=== PATIENT | male | born 1985 | race Caucasian/White ===

== ENCOUNTER 2019-05-10 13:39 | Emergency (ER) | payer BC ==
[2019-05-10] MEDS ORDERED: IPRATROPIUM BROM 0.5MG/2.5ML ONE (14:17)
[2019-05-10] MEDS ORDERED: ALBUTEROL 2.5 MG/3 ML NEB SOL ONE (14:17)
--- NOTE | 2019-05-10 15:45 | ER ---
Nurse's Notes [facility] Name: Romaine Matute Age: 33 yrs Sex: Male : 1985 Arrival Date: 05/10/2019 Time: 13:44 Bed 27 Private MD: Diagnosis: Acute bronchitis Presentation: 05/10 14:12 Presenting complaint:. Transition of care: patient was not received from another setting of care. Onset of symptoms was April 25, 2019. Risk Assessment: Do you want to hurt yourself or someone else? Patient reports no desire to harm self or others. Initial Sepsis Screen: Does the patient meet any 2 criteria? No. Patient's initial sepsis screen is negative. Does the patient have a suspected source of infection? No. Patient's initial sepsis screen is negative. Note on productive cough X 2 weeks, no fever, feels congestion in his chest. Care prior to arrival: None. 14:12 Method Of Arrival: Ambulatory iw 14:12 Acuity: SUNNI 4 iw Historical: - Allergies: 14:13 No Known Allergies; iw - Home Meds: 14:13 None [Active]; iw - PMHx: 14:13 None; iw - PSHx: 14:13 None; iw - Immunization history:: Adult Immunizations not up to date. - Social history:: Smoking status: Patient/guardian denies using tobacco. - Ebola Screening: : Patient negative for fever greater than or equal to 101.5 degrees Fahrenheit, and additional compatible Ebola Virus Disease symptoms Patient denies exposure to infectious person Patient denies travel to an Ebola-affected area in the 21 days before illness onset No symptoms or risks identified at this time. Screenin:26 Abuse screen: Denies threats or abuse. Denies injuries from another. Nutritional rv screening: No deficits noted. Tuberculosis screening: No symptoms or risk factors identified. Fall Risk None identified. Assessment: 14:25 General: Appears in no apparent distress. comfortable, Behavior is calm, cooperative. rv Pain: Denies pain. Neuro: Level of Consciousness is awake, alert, obeys commands, Oriented to person, place, time, situation. Cardiovascular: Patient's skin is warm and dry. Respiratory: Airway is patent. GI: No signs and/or symptoms were reported involving the gastrointestinal system. : No signs and/or symptoms were reported regarding the genitourinary system. EENT: No signs and/or symptoms were reported regarding the EENT system. Derm: Skin is intact. Musculoskeletal: No signs and/or symptoms reported regarding the musculoskeletal system. 15:28 Reassessment: denies any change to prior condition. no wheezing upon auscultation. rv awaiting XRAY result. 15:58 Reassessment: Cesario Jeffery talked to the patient and explained the results and the plan rv of care. patient agreed. Vital Signs: 14:13 BP 158 / 89; Pulse 81; Resp 18 S; Temp 98.5(O); Pulse Ox 98% on R/A; Weight 176.9 kg; iw Height 5 ft. 10 in. (177.80 cm); Pain 0/10; 15:29 BP 139 / 94; Pulse 85; Resp 18; Pulse Ox 98% on R/A; rv 14:13 Body Mass Index 55.96 (176.90 kg, 177.80 cm) iw ED Course: 13:44 Patient arrived in ED. mr 14:04 Cesario Jeffery PA is PHCP. cp 14:04 Yakov Garcia MD is Attending Physician. cp 14:13 Triage completed. iw 14:13 Arm band placed on. iw 14:15 Matias Jane, ERNESTINA is Primary Nurse. rv 14:26 Patient has correct armband on for positive identification. Bed in low position. Call rv light in reach. Side rails up X 1. Pulse ox on. NIBP on. 14:57 XRAY Chest Pa And Lat (2 Views) Sent. rv 15:17 XRAY Chest Pa And Lat (2 Views) In Process Unspecified. EDMS 15:58 No provider procedures requiring assistance completed. Patient did not have IV access rv during this emergency room visit. Administered Medications: 14:20 Drug: Albuterol 2.5 mg Route: Inhalation; rv 15:27 Follow up: Response: Wheezing diminished rv 14:20 Drug: AtroVENT Aerosol 0.5 mg Route: Inhalation; rv 15:27 Follow up: Response: Wheezing diminished rv Outcome: 15:44 Discharge ordered by . cp 15:58 Discharged to home ambulatory. rv 15:58 Condition: good 15:58 Discharge instructions given to patient, Instructed on discharge instructions, follow up and referral plans. medication usage, Demonstrated understanding of instructions, follow-up care, medications, Prescriptions given X 2. 15:59 Patient left the ED. rv Signatures: Dispatcher [employer] EDUT FlanneryBrandy villalta Irene, RN RN Cesario Lea PA PA cp Vicente, Ronaldo, ERNESTINA RN rv
--- NOTE | 2019-05-10 15:45 | EDPHYS ---
Physician Documentation [facility] Name: Romaine Matute Age: 33 yrs Sex: Male : 1985 Arrival Date: 05/10/2019 Time: 13:44 Bed 27 Private MD: ED Physician Yakov Garcia HPI: 05/10 14:20 This 33 yrs old Male presents to ER via Ambulatory with complaints of Cough. cp 14:20 The patient or guardian reports cough, that is intermittent, with productive sputum. cp 14:20 Onset: The symptoms/episode began/occurred 2 week(s) ago. Severity of symptoms: in the emergency department the symptoms are unchanged, despite home interventions. Associated signs and symptoms: Pertinent negatives: chest pain, diarrhea, fever, vomiting. Historical: - Allergies: 14:13 No Known Allergies; iw - Home Meds: 14:13 None [Active]; iw - PMHx: 14:13 None; iw - PSHx: 14:13 None; iw - Immunization history:: Adult Immunizations not up to date. - Social history:: Smoking status: Patient/guardian denies using tobacco. - Ebola Screening: : Patient negative for fever greater than or equal to 101.5 degrees Fahrenheit, and additional compatible Ebola Virus Disease symptoms Patient denies exposure to infectious person Patient denies travel to an Ebola-affected area in the 21 days before illness onset No symptoms or risks identified at this time. ROS: 14:30 Constitutional: Negative for body aches, chills, fever, poor PO intake. cp 14:30 Eyes: Negative for injury, pain, redness, and discharge. cp 14:30 ENT: Negative for drainage from ear(s), ear pain, sinus congestion, difficulty swallowing, difficulty handling secretions. 14:30 Cardiovascular: Negative for chest pain. 14:30 Respiratory: Positive for cough, wheezing, Negative for shortness of breath. 14:30 Abdomen/GI: Negative for abdominal pain, nausea, vomiting, and diarrhea. 14:30 Skin: Negative for rash. 14:30 Neuro: Negative for altered mental status, headache, weakness. 14:30 All other systems are negative. Exam: 14:35 Constitutional: The patient appears in no acute distress, alert, awake, cp non-diaphoretic, non-toxic, well developed, well nourished, obese. 14:35 Head/Face: Normocephalic, atraumatic. cp 14:35 Eyes: Periorbital structures: appear normal, Conjunctiva: normal, no exudate, no injection, Sclera: no appreciated abnormality, Lids and lashes: appear normal, bilaterally. 14:35 ENT: External ear(s): are unremarkable, Ear canal(s): are normal, clear, TM's: bulging, is not appreciated, bilaterally, dullness, bilaterally, erythema, is not appreciated, bilaterally, Nose: is normal, Mouth: is normal, Posterior pharynx: is normal, airway is patent, no erythema, no exudate. 14:35 Neck: ROM/movement: is normal, is supple, without pain, no range of motions limitations, no nuchal rigidity. 14:35 Chest/axilla: Inspection: normal, Palpation: is normal, no crepitus, no tenderness. 14:35 Cardiovascular: Rate: normal, Rhythm: regular. 14:35 Respiratory: the patient does not display signs of respiratory distress, Respirations: normal, no use of accessory muscles, no retractions, no splinting, no tachypnea, labored breathing, is not present, Breath sounds: decreased breath sounds, are not appreciated, stridor, is not appreciated, + upper airway congestion. wheezing: that is mild, is heard diffusely. 14:35 Abdomen/GI: Exam negative for discomfort, distension, guarding, Inspection: obese 14:35 Back: pain, is absent, ROM is normal. 14:35 Skin: no rash present. Vital Signs: 14:13 BP 158 / 89; Pulse 81; Resp 18 S; Temp 98.5(O); Pulse Ox 98% on R/A; Weight 176.9 kg; iw Height 5 ft. 10 in. (177.80 cm); Pain 0/10; 15:29 BP 139 / 94; Pulse 85; Resp 18; Pulse Ox 98% on R/A; rv 14:13 Body Mass Index 55.96 (176.90 kg, 177.80 cm) iw MDM: 14:06 Patient medically screened. cp 15:43 Data reviewed: vital signs, nurses notes, radiologic studies, plain films. cp 15:43 Test interpretation: by ED physician or midlevel provider: plain radiologic studies, cp chest xray negative for focal pneumonia. Counseling: I had a detailed discussion with the patient and/or guardian regarding: the historical points, exam findings, and any diagnostic results supporting the discharge/admit diagnosis, radiology results, to return to the emergency department if symptoms worsen or persist or if there are any questions or concerns that arise at home. Response to treatment: the patient's symptoms have markedly improved after treatment. ED course: VSS. Due to length of symptoms for past 2 weeks and production of sputum, will treat with oral antibiotic and discharge to home for continued monitoring. 05/10 14:13 Order name: XRAY Chest Pa And Lat (2 Views) cp Administered Medications: 14:20 Drug: Albuterol 2.5 mg Route: Inhalation; rv 15:27 Follow up: Response: Wheezing diminished rv 14:20 Drug: AtroVENT Aerosol 0.5 mg Route: Inhalation; rv 15:27 Follow up: Response: Wheezing diminished rv Disposition: 05/10/19 15:44 Discharged to Home. Impression: Acute bronchitis. - Condition is Stable. - Discharge Instructions: Acute Bronchitis, Adult. - Prescriptions for Tessalon Perles 100 mg Oral Capsule - take 2 capsule by ORAL route every 8 hours As needed; 30 capsule. Zithromax Z- Hong 250 mg Oral Tablet - take 1 tablet by ORAL route as directed for 5 days Day 1 - take two (2) tablets one time. Day 2, 3, 4 , 5 take one (1) tablet once daily.; 6 tablet. Albuterol Sulfate 90 mcg/actuation - inhale 1-2 puff by INHALATION route every 4-6 hours; 1 Inhaler. - Medication Reconciliation Form, Thank You Letter, Antibiotic Education, Prescription Opioid Use, Work release form form. - Follow up: Private Physician; When: 1 week; Reason: Worsening of condition. - Problem is new. - Symptoms have improved. Addendum: 05/12/2019 07:54 Co-signature as Attending Physician, Yakov Garcia MD I agree with the assessment and k dr plan of care. Signatures: Dispatcher [employer] EDYakov Hutton MD MD kdr Maria Victoria Charles RN RN iw Page, Corey, PA PA cp Matias Jane RN RN rv Corrections: (The following items were deleted from the chart) 05/10 15:59 15:44 05/10/2019 15:44 Discharged to Home. Impression: Acute bronchitis. Condition is rv Stable. Forms are Medication Reconciliation Form, Thank You Letter, Antibiotic Education, Prescription Opioid Use. Follow up: Private Physician; When: 1 week; Reason: Worsening of condition. Problem is new. Symptoms have improved. cp
--- NOTE | 2019-05-10 15:59 | RAD REPORT ---
EXAM DESCRIPTION: RAD - Chest Pa And Lat (2 Views) - 05/10/2019 3:09 pm CLINICAL HISTORY: COUGH COMPARISON: None. TECHNIQUE: PA and lateral views of the chest were obtained. FINDINGS: The lungs are underinflated. Lung low are clear. No failure or volume overload. Lateral view has significant motion degradation. Heart size is normal and central vasculature is within no rmal limits. No pleural effusion or pneumothorax seen. No acute bony finding noted. No aortic abno rmality. IMPRESSION: No acute cardiopulmonary process.
[2019-05-10 16:25] VITALS: TEMP 98.5; O2SAT 98
[2019-05-10 16:27] VITALS: BP 139/94
== END 2019-05-10 15:59 | disposition home or self-care (01) ==
LOC: ER 13:39
DX: J20.9 Acute bronchitis, unspecified (principal)
CPT/HCPCS: 71046; 99284

== ENCOUNTER 2020-01-06 08:33 | Emergency (ER) | payer BC ==
--- OUTSIDE RECORDS SUMMARY | 2020-01-06 08:35 | XMS REPORT | Continuity of Care Document ---
:1985 Author Organization [facility] Address [address] [place] [address] Phone Unavailable Care Team Providers Name Role Phone PHYSICIAN Primary Care Physician Unavailable Insurance Providers Guarantor Kelvin Benitez Address [address] [place] [address] Email [email or web address] Payer [employer] Policy Number [id number] Subscriber's Name Kelvin Benitez Relationship Self / Same As Patient Group Number [id number] Group Name NA Advance Directives Directive Response Recorded Date/Time Advance Directive on File No 11/19/18 2:55p m Patient/Family Given Education Material R/T Y - 11/19/18.. .SBM 11/19/18 3:31pm Directives? Chief Complaint and Reason for Visit Chief Complaint HEENTL Reason for Visit Elevated blood pressure read ing Fluid level behind tympanic membrane of both ears Otitis media Problems Active ProblemsNo active problem information available. Past Problems Medical Problem Onset Date Status Elevated blood pressure reading Unknown Acute Fluid level behind tympanic membrane of both ears Unknown Acute Otitis media Unknown Acute Otitis media Unknown Acute Medications Current Home Medications Medication Dose Units Route Directions Days Qty Instructio ns Start Date Amoxicillin/Cl 1 Tab ORAL Twice A Day 10 Days 20 Tablet 11/19/18 avulanate for Otitis Potassium Media (Augmentin *) 875 Mg Tab Loratadine 1 Cap ORAL Daily for 30 Days 30 Cap (Claritin 10 Allergy Mg) 10 Mg Cap Symptoms Social History Social History Problem Response Recorded Date/Time Onset Date Status Hx Physical Abuse No 11/19/2018 2:55pm Not Applicable Not Applicable Smoking Status Start Date Stop Date Never smoker Hospital Discharge Instructions No hospital discharge instruction information available. Plan of Care Discharge Date 11/19/18 3:28pm Instructions/Education Provided Otitis Media, Adult, E asy-to-Read Hypertension, [id number] Forms Provided Portal Welcome Letter Prescriptions See Medication Section Referrals NO PHYSICIAN Additional Instructions/Education DIAGNOSIS: OTITIS ME SUSANA, FLUID LEVEL BEHIND TYMPANIC MEMBRANE, ELEVATED BLOOD PRESSURE PRESCRIPTION: AUGMENTIN , LO RATADINE FOLLOW UP: WITH PRIMARY CARE PROVIDER OR ENT IN 2 DAYS * RETURN TO EMERGENCY DEPART MENT FOR ANY CHANGE IN CONDITION OR WORSENING* INSTRUCTIONS: DRINK PLENTY OF FLUIDS MAY TAKE TYLENOL OR IBUPROFE N PER BOTTLE DIRECTIONS Care Plan and Goals TAKE MEDICATIONS PRESCRIB ED FOLLOW UP WITH PCP RETURN TO ER WITH ANY FURTHE R EMERGENT CONDITIONS Functional Status No functional status information available. Allergies, Adverse Reactions, Alerts No known allergies. Immunizations No immunization information available. Vital Signs Acute Vital Signs Vital Response Date/Time Blood Pressure 185/107 mm Hg 11/19/2018 3:26pm Pulse Pulse Rate (adult) 95 beats per minute (60 - 100) 019 3:26pm Respiratory Rate 20 breaths per minute (10 - 24) 11/20/19 19 3:26pm Results No relevant diagnostic test, laboratory data and/or discharge summary information available. Procedures No procedure information available. Encounters Encounter Location Arrival/Admit Date Discharge/Depart Date Attending Provider Departed David 11/19/18 2:40pm 11/19/18 3:28pm RAMON HARDY Emergency Room [facility] Recent Diagnosis
--- OUTSIDE RECORDS SUMMARY | 2020-01-06 08:36 | XMS REPORT | Continuity of Care Document ---
:1985 Author Organization [facility] Address [address] [place] [address] Care Team Providers Name Role Phone Juliane PATRICK Primary Care Physician Allergies, Adverse Reactions, Alerts No known allergies. Medications Medication Status Dose Units Route Sig Qty Days Start End Instruct ions Date Date Amoxicillin/ Active 1 ORAL Twice A October Clavulanate Day for , Otitis 2019 Media 3:17pm Loratadine Active 1 ORAL Daily for October Allergy , Symptoms 2019 3:17pm Problems Active Problems Medical Problem Onset Date Status Dehydration Active Hypokalemia Active Inactive/Resolved Problems Medical Problem Onset Date Status Otitis media Resolved Elevated blood pressure reading Resolved Fluid level behind tympanic Resolved membrane of both ears Otitis media Resolved Procedures Procedure Date Performed Status Computed tomography angiography December 06, 2019 complete d of chest for pulmonary embolism Computed tomography of abdomen December 06, 2019 completed and pelvis with contrast Relevant Diagnostic Tests and/or Laboratory Data Laboratory Results Test Date/Time Result Interpretation Reference Result Comment Performing Range Site White Blood Count November 10.7 4.0-12.3 MR , 104 2019 [facility] [address] 3:35pm Red Blood Count November 5.70 3.80-5.80 [facility] , 104 2019 [facility] [address] 3:35pm Hemoglobin November 16.0 11.7-17.2 [facility], 104 2019 [place] [id number] 3:35pm Hematocrit November 48.3 35.0-51.0 [facility], 104 2019 [place] [address] 3:35pm Mean Corpuscular Janice 84.7 83-100 [facility], 104 [facility] Volume 2019 [place] [address] 3:35pm Mean Corpuscular Janice 28.1 26.8-33.4 [facility], 104 [facility] Hemoglobin 2019 [place] [id number] 3:35pm Mean Corpuscular Janice 33.1 30-35 [facility], 104 [facility] Hemoglobin 2019 [place] [address] Concent 3:35pm Red Cell Janice 12.9 12.0-14.0 [facility], 104 [facility] Distribution 2019 [place] [address] Width 3:35pm Platelet Count November 215 175-450 [facility], 104 [facility] 2019 [place] [address] 3:35pm Mean Platelet Janice 11.2 9.4-12.6 [facility], 104 [facility] Volume 2019 [place] [address] 3:35pm Neutrophils (%) November 70.9 44.7-82.4 [facility] , 104 [facility] (Auto) 2019 [place] [address] 3:35pm Immature Janice 0.3 0.0-0.4 [facility], 104 Granulocyte % 2019 [place] [id number] (Auto) 3:35pm Lymphocytes (%) November 17.9 10.0-50.0 [facility] , 104 [facility] (Auto) 2019 [place] [address] 3:35pm Monocytes (%) November 8.8 3.9-13.4 [facility], 104 [facility] (Auto) 2019 [place] [address] 3:35pm Eosinophils (%) November 1.6 0.0-6.4 [facility] , 104 [facility] (Auto) 2019 [place] [id number] 3:35pm Basophils (%) November 0.5 0.2-1.2 [facility], 104 [facility] (Auto) 2019 [place] [address] 3:35pm Neutrophils # Janice 7.55 1.78-5.38 [facility], 104 [facility] (Auto) 2019 [place] [id number] 3:35pm Absolute Immature Janice 0.0 0.0-0.03 [facility], 104 [facility] Granulocyte (auto 2019 B [facility] [address] 3:35pm Lymphocytes # Janice 1.9 1.32-3.57 [facility], [address] (Auto) 2019 [facility] [address] 3:35pm Monocytes # Janice 0.94 0.30-0.82 [facility], [address] (Auto) 2019 [facility] [address] 3:35pm Eosinophils # Janice 0.17 0.04-0.54 [facility], [address] (Auto) 2019 [facility] [address] 3:35pm Basophils # Janice 0.05 0.01-0.08 [facility], [address] (Auto) 2019 [facility] [address] 3:35pm Nucleated Red Janice 0 0-0.2 [facility], 104 [facility] Blood Cells % 2019 [place] [id number] 3:35pm Nucleated Red Janice 0 0 [facility], 104 [facility] Blood Cells # 2019 [place] [id number] 3:35pm D-Dimer November 462 <500 [facility], 104 [facility] 2019 [place] [id number] 3:18pm Prothrombin Time November 11.9 10.3-12.3 THERAPEUTIC M [facility], 104 [facility] 2019 LEVEL: 1.5 to [place] [address] 3:35pm 1.9 times normal range of PT Prothromb Time November 1.11 Recommended [facility], 104 [facility] International 2019 therapeutic [place] [address] Ratio 3:35pm range for patients receiving warfarin (coumadin) therapy: INR is 2.0 to 3.0Recommended range for patients with mechanical prosthetic heart valves: INR is 2.5 to 3.5 Activated Partial Janice 26.9 22.5-37.0 [facility], [address] Thromboplast Time 2019 [place] [place] [address] 3:35pm Random Glucose November 116 74-106 [facility], 104 [facility] 2019 [facility] [address] 3:35pm Blood Urea November 16 6-20 [facility], 104 [facility] Nitrogen 2019 [facility] [address] 3:35pm Serum Osmolality November 285 280-300 [facility], 104 [facility] 2019 [place] [id number] 3:35pm Creatinine Janice 0.9 0.70-1.20 [facility], [address] 2019 [place] [address] 3:35pm Glomerular Ajnice > 60.00 GFR RESULTS ARE [facility] C, 104 Filtration Rate 2019 REPORTED IN B [place] [address] Calc 3:35pm mL/min/1.73m2.N ormal GFR: >60mL/minModera tely decreased GFR: 30-59 mL/minSeverely decreased GFR: 15-29 mL/minKidney Failure (or Dialysis): <15 mL/minThe calculated eGFR is not valid for patients younger than 18 years or older than 75 years. BUN/Creatinine Janice 17.8 - [facility], 104 Ratio 2019 [place] [address] 3:35pm Sodium Level Janice 142 135-145 [facility], [address] [place] [address] 3:35pm Potassium Level Janice 3.2 3.5-5.2 [facility] , 104 2019 [place] [address] 3:35pm Chloride Level November 101 98-108 [facility], 104 2019 [place] [address] 3:35pm Carbon Dioxide November 19 21-32 [facility], 104 Level 2019 [place] [address] 3:35pm Anion Gap November 25.2 - [facility], 104 2019 [place] [address] 3:35pm Calcium Level November 9.8 8.6-10.0 [facility], 104 2019 [place] [address] 3:35pm Total Protein Janice 8.1 6.6-8.7 [facility], 104 2019 [place] [address] 3:35pm Albumin Janice 4.5 3.5-5.2 [facility], 104 2019 [place] [id number] 3:35pm Globulin Janice 3.6 [facility], 104 2019 [place] [address] 3:35pm Albumin/Globulin Janice 1.3 >1.0 [facility], [address] Ratio 2019 [place] [id number] 3:35pm Total Bilirubin Janice 0.9 0.0-1.2 [facility] , 104 2019 [place] [address] 3:35pm Aspartate Amino Janice 88 15-40 [facility] , [address] Transf (AST/SGOT) 2019 B [place] [id number] 3:35pm Alanine Janice 155 0-41 [facility], [address] Aminotransferase 2019 BA Y [facility] [address] (ALT/SGPT) 3:35pm Lipase Janice 185 13-60 [facility], [address] 2019 [place] [id number] 3:35pm Total Alkaline Janice 119 40-130 [facility], [address] Phosphatase 2019 [place] [id number] 3:35pm Thyroid Janice 2.35 0.36-3.74 [facility], [address] Stimulating 2019 [place] [id number] Hormone (TSH) 3:35pm Creatine Kinase Janice 130 20-200 [facility] , [address] 2019 [place] [address] 3:35pm Troponin I Janice < 0.30 0.0-0.5 Published [facility], [address] 2019 clinical [place] [address] 3:35pm studies have shown elevations of cTnI in patients with myocardial injury, as seen in unstable angina pectoris, cardiac contusions, and heart transplants. Elevations have also been seen in patients with rhabdomyolysis and polymyositis.El evated troponin levels point to myocardial injury, but are not necessarily indicative of an ischemic mechanism. The term UT should be used when there is evidence of cardiac damage, as detected by marker proteins in a clinical setting consistent with myocardial ischemia. If the clinical circumstance suggests that an ischemic mechanism is unlikely, other causes of cardiac injury should be considered.For diagnostic purposes, the results should always be assessed in conjunction with the patient's medical history, clinical examination and other findings. Creatine Kinase November 2.2 0.0-3.6 DIAGNOSTIC [facility], [address] MB 2019 CITERIA: [place] [address] 3:35pm CKMB CKMB RELATIVE INDEX -----SUGGESTIVE OF NON-AMI < or = 5 N/AGRAY ZONE (INCONCLUSIVE) > 5 < or = 4SUGGESTIVE OF AMI >5 > 4 Rejected Laboratory Tests Ordered Test Collection Cancelled Reject Reason Specimen Date/Time Date/Time Condition CBC AUTO DIFF December 06, 2019 December 06, 2019 Clotting Clotte d 3:18pm 3:29pm PROTHROMBIN TIME INR December 06, 2019 December 06, 2019 Hemolysis Hemolyzed 3:18pm 3:31pm PARTIAL December 06, 2019 December 06, 2019 Hemolysis Hemolyz ed THROMBOPLASTIN TIME 3:18pm 3:31pm COMPREHENSIVE December 06, 2019 December 06, 2019 Hemolysis Hemoly zed METABOLIC PANEL 3:18pm 3:29pm LIPASE December 06, 2019 December 06, 2019 Hemolysis Hemolyz ed 3:18pm 3:29pm THYROID STIMULATING December 06, 2019 December 06, 2019 Hemolysis Hemolyzed HORMONE L 3:16pm 3:30pm CREATINE KINASE December 06, 2019 December 06, 2019 Hemolysis Hemo lyzed 3:18pm 3:29pm CARDIAC TROPONIN I December 06, 2019 December 06, 2019 Hemolysis H emolyzed 3:18pm 3:29pm MASS CREATININE December 06, 2019 December 06, 2019 Hemolysis Hemo lyzed KINASE-MB 3:18pm 3:29pm Microbiology Results Procedure Source Result Collection Result Result Performin g Date/Time Date/Time Comment Site Blood Culture BLOOD SPECIMEN HAS December 05, December 05, [facility], [address] BEEN 2019 3:35pm 2019 3:41pm [facility] [id number] RECEIVED IN LAB AND IS IN PROGRESS. Health Concerns Health Concerns may be documented in an alternate section. Advance Directives Advance Directive Response Recorded Date/Time Advance Directive on File No December 05 2:59pm Chief Complaint and Reason for Visit Chief Complaint General Complaint Reason for Visit [id number] Encounters Encounter Location(s) Arrival/Admit Date Discharge/Depart Date Provider(s) Moi Hernandez December 06, 2019 JEFF ARRINGTON MD Emergency Room [facility] 2:54pm Ctr Assessments No Assessments Information Available Functional Status No Functional Status information available Goals Goals may be documented in an alternate section. Immunizations No Immunization Information Available Mental Status No Mental Status Information Available Medical Equipment No Medical Equipment Information available Insurance Providers Guarantor Kelvin Matute Address [phone] [facility] [address] Contact Info. Home Phone: Payer Policy Id Coverage Id Subscriber's Subscriber Id Effective E xpiration Name Date Date Silvio Larose [id number] Kelvin Matute [id number] [address] Plan of Treatment drink more fluids, G2 for electrolyites follow up with PCP in 2-4 days return for new or worsening of symptoms Future Tests Future scheduled test information is unavailable Pending Tests Pending diagnostic test information is unavailable Future Visits Future appointment information is unavailable Referrals to Other Providers Reason for Referral Start Provider Provider Contact Provider Address Referral Date Information KAIDEN PATRICK Work Phone: [address] [facility] [address] Future Procedures Future procedure information is unavailable Future Medications Future medication information is unavailable Patient Instructions Sleeve Gastrectomy, Care After Hypokalemia Dehydration, Adult, Yerg-ba-Cisd Social History Smoking Status Status Date of Observation Never smoked tobacco (finding) December 06, 2019 2:59pm Observation Status Observation Response Date of Response S/P gastric surgery December 06, 2019 5:2 8pm Hx Physical Abuse No December 06, 2019 2:5 9pm Assigned Sex Male Vital Signs Vital Reading Result Collection Date/Time Weight 395 [lb_av] December 06, 2019 2:5 9pm BMI (Body Mass Index) 56.7 kg/m2 December 06, 2019 2 :59pm
[2020-01-06] MEDS ORDERED: FENTANYL CITR 100 MCG/2 ML ONE (09:06)
--- NOTE | 2020-01-06 09:24 | RAD REPORT ---
EXAM DESCRIPTION: CT - Stone Protocol - 01/06/2020 9:07 am CLINICAL HISTORY: FLANK PAIN COMPARISON: No comparisons TECHNIQUE: Axial 5 mm thick images were obtained without oral or IV contrast. The [id number] span s the entirety of the system including uppermost abdomen and lung bases. All CT scans are performed using dose optimization technique as appropriate and may include automated exposure control or mA/KV adjustment according to patient size. FINDINGS: Mild right-sided hydronephrosis. There is a very faint punctate 1 millimeter sized density at the right UVJ. Patient could have additional sandlike stones or mucosal edema contributing to the minimal obstruction. There is a 2- 3 millimeter calyx calcification mid left kidney. No other calcul i seen. No suspicious renal masses. Isodense masses and pyelonephritis are not excluded on a stone pr otocol CT scan. No significant adrenal finding. Urinary bladder is fully contracted limiting assessme nt. Imaged portions of the liver, spleen and pancreas show no suspicious findings on non-contrast imaging . Multiple gallstones are present. No active gallbladder process seen. No biliary tree dilatation. No suspicious bowel findings. Appendix is normal. No hernia, mass or bulky lymphadenopathy noted. No free air, free fluid or inflammatory stranding. No significant bony abnormality. IMPRESSION: Mild right-sided hydronephrosis is present down to the UVJ. There is a faint 1 millimete r sized calcification evident. Overall detail is limited due to the large body habitus. Nonobstructing 2- 3 mm calyx calcification left kidney. Isodense masses and pyelonephritis are not excluded on stone protocol technique.
--- NOTE | 2020-01-06 09:28 | ER ---
Nurse's Notes [facility] Name: Romaine Matute Age: 34 yrs Sex: Male : 1985 Arrival Date: 01/06/2020 Time: 08:36 Bed 2 Private MD: Diagnosis: Hydronephrosis with renal and ureteral calculous obstruction;Cholelithiasis Presentation: 01/05 08:40 Chief complaint: Patient states: Woke up at 0500 this morning with right flank pain rb1 810. Pt. went to [place] six weeks ago, denies being around anyone that was sick. Coronavirus screen: Patient denies a cough. Patient denies shortness of breath or difficulty breathing. Patient denies measured and/or subjective temperature greater than 100.4F prior to today's visit. Patient reports travel on a cruise ship or to a country the [facility] currently lists as an affected area. Patient denies contact with known and/or suspected case of COVID-19. Ebola Screen: Patient denies exposure to infectious person. Initial Sepsis Screen: Does the patient meet any 2 criteria? No. Patient's initial sepsis screen is negative. Does the patient have a suspected source of infection? No. Patient's initial sepsis screen is negative. Risk Assessment: Do you want to hurt yourself or someone else? Patient reports no desire to harm self or others. Onset of symptoms was January 06, 2020 at 05:00. 08:40 Method Of Arrival: Ambulatory rb1 08:40 Acuity: SUNNI 3 rb1 Triage Assessment: 08:40 General: Appears in no apparent distress. comfortable, obese, Behavior is calm, rb1 cooperative. Pain: Complains of pain in right low back Pain currently is 8 out of 10 on a pain scale. Pain began 4 hours ago. Neuro: Level of Consciousness is awake, alert, obeys commands, Oriented to person, place, time, situation. Cardiovascular: Capillary refill < 3 seconds. Respiratory: Airway is patent Respiratory effort is even, unlabored, Respiratory pattern is regular, symmetrical. GI: Reports nausea, vomiting. : No signs and/or symptoms were reported regarding the genitourinary system. Denies pain with urination. Derm: Skin is pink, warm \T\ dry. 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 - Social history:: Smoking status: Patient/guardian denies using. Screenin:40 Abuse screen: Denies threats or abuse. Nutritional screening: No deficits noted. rb1 Tuberculosis screening: No symptoms or risk factors identified. Fall Risk None identified. Assessment: 08:40 General: See triage assessment. rb1 09:40 Reassessment: Patient appears in no apparent distress at this time. Patient and/or rb1 family updated on plan of care and expected duration. Pain level reassessed. Patient is alert, oriented x 3, equal unlabored respirations, skin warm/dry/pink. Vital Signs: 08:40 BP 106 / 94; Pulse 61; Resp 19; Temp 97.6(O); Pulse Ox 99% on R/A; Weight 172.37 kg rb1 (R); Height 5 ft. 9 in. (175.26 cm) (R); Pain 8/10; 09:30 BP 152 / 96; Pulse 64; Resp 19; Pulse Ox 98% on R/A; rb1 08:40 Body Mass Index 56.12 (172.37 kg, 175.26 cm) rb1 ED Course: 08:36 Patient arrived in ED. as 08:37 Virginie Felix FNP-C is PHCP. snw 08:37 Dexter Wynn MD is Attending Physician. snw 08:40 Arm band placed on right wrist. rb1 08:40 Patient has correct armband on for positive identification. Bed in low position. Call rb1 light in reach. Side rails up X 1. Pulse ox on. NIBP on. 08:41 Kory Dumont, RN is Primary Nurse. bp 08:51 Triage completed. rb1 09:08 CT Stone Protocol In Process Unspecified. EDMS 09:20 Primary Nurse role handed off by Kroy Dumont, ERNESTINA rb1 09:20 Itzel Diaz, RN is Primary Nurse. rb1 09:27 Rosa Maria Madrid MD is Referral Physician. snw 09:58 No provider procedures requiring assistance completed. Patient did not have IV access rb1 during this emergency room visit. Administered Medications: 09:19 Drug: fentaNYL (PF) 50 mcg Route: IM; Site: right deltoid; rb1 09:50 Follow up: Response: No adverse reaction; Pain is decreased rb1 09:50 Drug: Cipro 500 mg Route: PO; rb1 09:56 Follow up: Response: Medication administered at discharge. rb1 09:50 Drug: Flomax 0.4 mg Route: PO; rb1 09:56 Follow up: Response: Medication administered at discharge. rb1 09:51 Drug: Lincoln 5 mg-325 mg 1 tabs Route: PO; rb1 Outcome: 09:28 Discharge ordered by . [email or web address] 09:58 Discharged to home ambulatory. rb1 09:58 Condition: stable 09:58 Discharge instructions given to patient, Instructed on discharge instructions, follow up and referral plans. medication usage, Demonstrated understanding of instructions, follow-up care, medications, Prescriptions given X 3. 09:58 Patient left the ED. rb1 Signatures: Dispatcher [employer] EDMS Virginie Felix, ODINC DEATH CLAIM CLERK-Consuelo Gillespie Rebecca, RN RN rb1 Kory Dumont RN RN bp Corrections: (The following items were deleted from the chart) 08:56 08:40 Chief complaint: Patient states: Woke up at 0500 this morning with right flank rb1 pain 04/01 rb1
--- NOTE | 2020-01-06 09:29 | EDPHYS ---
Physician Documentation [facility] Name: Romaine Matute Age: 34 yrs Sex: Male : 1985 Arrival Date: 01/06/2020 Time: 08:36 Bed 2 Private MD: ED Physician Dexter Wynn HPI: 01/05 08:45 This 34 yrs old Male presents to ER via Unassigned with complaints of Flank snw Pain. 08:45 The patient complains of pain in the right low back. The pain does not radiate. Onset: snw The symptoms/episode began/occurred suddenly, at 04:00. Associated signs and symptoms: The patient has no apparent associated signs or symptoms. Severity of pain: At its worst the pain was moderate severe. The patient has not experienced similar symptoms in the past. VSD surgery 6 weeks ago. 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 - Social history:: Smoking status: Patient/guardian denies using. ROS: 08:44 Constitutional: Negative for fever, chills, and weight loss, Eyes: Negative for injury, snw pain, redness, and discharge, ENT: Negative for injury, pain, and discharge, Neck: Negative for injury, pain, and swelling, Cardiovascular: Negative for chest pain, palpitations, and edema, Respiratory: Negative for shortness of breath, cough, wheezing, and pleuritic chest pain, Abdomen/GI: Negative for abdominal pain, nausea, vomiting, diarrhea, and constipation, : Negative for injury, bleeding, discharge, and swelling, MS/Extremity: Negative for injury and deformity, Skin: Negative for injury, rash, and discoloration, Neuro: Negative for headache, weakness, numbness, tingling, and seizure, Psych: Negative for depression, anxiety, suicide ideation, homicidal ideation, and hallucinations. 08:44 Back: Positive for pain at rest, of the right low back. Exam: 08:44 Constitutional: This is a well developed, well nourished patient who is awake, alert, snw and in no acute distress. Head/Face: Normocephalic, atraumatic. Eyes: Pupils equal round and reactive to light, extra-ocular motions intact. Lids and lashes normal. Conjunctiva and sclera are non-icteric and not injected. Cornea within normal limits. Periorbital areas with no swelling, redness, or edema. ENT: Nares patent. No nasal discharge, no septal abnormalities noted. Tympanic membranes are normal and external auditory canals are clear. Oropharynx with no redness, swelling, or masses, exudates, or evidence of obstruction, uvula midline. Mucous membranes moist. Neck: Trachea midline, no thyromegaly or masses palpated, and no cervical lymphadenopathy. Supple, full range of motion without nuchal rigidity, or vertebral point tenderness. No Meningismus. Chest/axilla: Normal chest wall appearance and motion. Nontender with no deformity. No lesions are appreciated. Cardiovascular: Regular rate and rhythm with a normal S1 and S2. No gallops, murmurs, or rubs. Normal PMI, no JVD. No pulse deficits. Respiratory: Lungs have equal breath sounds bilaterally, clear to auscultation and percussion. No rales, rhonchi or wheezes noted. No increased work of breathing, no retractions or nasal flaring. Abdomen/GI: Soft, non-tender, with normal bowel sounds. No distension or tympany. No guarding or rebound. No evidence of tenderness throughout. Skin: Warm, dry with normal turgor. Normal color with no rashes, no lesions, and no evidence of cellulitis. MS/ Extremity: Pulses equal, no cyanosis. Neurovascular intact. Full, normal range of motion. Neuro: Awake and alert, GCS 15, oriented to person, place, time, and situation. Cranial nerves II-XII grossly intact. Motor strength 5/5 in all extremities. Sensory grossly intact. Cerebellar exam normal. Normal gait. Psych: Awake, alert, with orientation to person, place and time. Behavior, mood, and affect are within normal limits. 08:44 Back: pain, that is moderate, of the right low back, CVA tenderness, is absent. Vital Signs: 08:40 BP 106 / 94; Pulse 61; Resp 19; Temp 97.6(O); Pulse Ox 99% on R/A; Weight 172.37 kg rb1 (R); Height 5 ft. 9 in. (175.26 cm) (R); Pain 8/10; 09:30 BP 152 / 96; Pulse 64; Resp 19; Pulse Ox 98% on R/A; rb1 08:40 Body Mass Index 56.12 (172.37 kg, 175.26 cm) rb1 MDM: 08:46 Patient medically screened. snw 09:29 Data reviewed: vital signs, nurses notes. Data interpreted: Pulse oximetry: on room air snw is 99 %. Interpretation: normal. Counseling: I had a detailed discussion with the patient and/or guardian regarding: the historical points, exam findings, and any diagnostic results supporting the discharge/admit diagnosis, lab results, radiology results, the need for outpatient follow up, to return to the emergency department if symptoms worsen or persist or if there are any questions or concerns that arise at home. Special discussion: Based on the patient's Hx, exam, and Dx evaluation, there is no indication for emergent surgery or inpatient Tx. It is understood by the patient/guardian that if the Sx's persist or worsen they need to return immediately for re-evaluation. Based on the history and exam findings, there is no indication for further emergent testing or inpatient evaluation. I discussed with the patient/guardian the need to see the general surgeon for further evaluation of the symptoms. I discussed with the patient/guardian the need to see the primary care provider for further evaluation of the symptoms. I discussed with the patient/guardian the need to see the urologist for further evaluation of the symptoms. 01/05 08:41 Order name: CT Stone Protocol; Complete Time: 09:25 snw Administered Medications: 09:19 Drug: fentaNYL (PF) 50 mcg Route: IM; Site: right deltoid; rb1 09:50 Follow up: Response: No adverse reaction; Pain is decreased rb1 09:50 Drug: Cipro 500 mg Route: PO; rb1 09:56 Follow up: Response: Medication administered at discharge. rb1 09:50 Drug: Flomax 0.4 mg Route: PO; rb1 09:56 Follow up: Response: Medication administered at discharge. rb1 09:51 Drug: Joliet 5 mg-325 mg 1 tabs Route: PO; rb1 Disposition: 11:07 Co-signature as Attending Physician, Dexter Wynn MD. rn Disposition: 01/06/20 09:28 Discharged to Home. Impression: Hydronephrosis with renal and ureteral calculous obstruction, Cholelithiasis. - Condition is Stable. - Discharge Instructions: Fat and Cholesterol Restricted Diet, Kidney Stones, Cholelithiasis, Hydronephrosis, Dietary Guidelines to Help Prevent Kidney Stones, Rehydration, Adult. - Prescriptions for Bentyl 20 mg Oral Tablet - take 2 tablet by ORAL route every 6 hours As needed; 40 tablet. Cipro 500 mg Oral Tablet - take 1 tablet by ORAL route every 12 hours for 7 days; 14 tablet. promethazine 25 mg Oral Tablet - take 1 tablet by ORAL route every 6 hours As needed; 20 tablet. - Work release form, Medication Reconciliation Form, Thank You Letter, Antibiotic Education, Prescription Opioid Use form. - Follow up: Emergency Department; When: As needed; Reason: Worsening of condition. Follow up: Private Physician; When: 2 - 3 days; Reason: Recheck today's complaints, Continuance of care, Re-evaluation by your physician. Follow up: Rosa Maria Madrid MD; When: 1 week; Reason: Recheck today's complaints, Continuance of care. Signatures: Dispatcher [employer] EDMS Virginie Felix, RESEARCH EXECUTIVE-C RESEARCH EXECUTIVE-Csnw Dexter Wynn MD MD rn Itzel Diaz RN RN rb1 Corrections: (The following items were deleted from the chart) 09:58 09:28 01/06/2020 09:28 Discharged to Home. Impression: Hydronephrosis with renal and rb1 ureteral calculous obstruction; Cholelithiasis. Condition is Stable. Forms are Medication Reconciliation Form, Thank You Letter, Antibiotic Education, Prescription Opioid Use. Follow up: Emergency Department; When: As needed; Reason: Worsening of condition. Follow up: Private Physician; When: 2 - 3 days; Reason: Recheck today's complaints, Continuance of care, Re-evaluation by your physician. Follow up: Rosa Maria Madrid; When: 1 week; Reason: Recheck today's complaints, Continuance of care. snw
[2020-01-06] MEDS ORDERED: CIPROFLOXACIN HCL 500 MG TAB ONE (09:42)
[2020-01-06] MEDS ORDERED: TAMSULOSIN 0.4 MG SR CAP ONE (09:42)
[2020-01-06] MEDS ORDERED: HYDROCODONE/APAP 5/325 MG TAB ONE (09:44)
[2020-01-06 10:36] LABS: Urine Blood TRACE (NEG); Urine Glucose NEGATIVE (NEG); Urine Protein 2+ (NEG); Urine pH 5.5 (5.0-7.0)
[2020-01-06 10:37] VITALS: BP 152/96; O2SAT 98
== END 2020-01-06 09:58 | disposition home or self-care (01) ==
LOC: ER 08:33
DX: N13.2 Hydronephrosis with renal and ureteral calculous obstruction (principal); K80.20 Calculus of gallbladder without cholecystitis without obstruction; Z88.6 Allergy status to analgesic agent
CPT/HCPCS: 81003; 76377; 74176; 96372; 99284; J3010

== ENCOUNTER 2020-02-16 19:09 | Emergency (ER) | payer BC ==
--- NOTE | 2020-02-16 20:09 | ER ---
Nurse's Notes [facility] Name: Romaine Matute Age: 34 yrs Sex: Male : 1985 Arrival Date: 02/16/2020 Time: 19:12 Bed Waiting [facility] MD: Diagnosis: ED Course: 02/15 19:12 Patient arrived in ED. cl3 Administered Medications: No medications were administered Outcome: 20:09 Patient left the ED. ca1 Signatures: Mariana Myles RN RN ca1 Kemal Riggs cl3
== END 2020-02-16 20:09 | disposition left against medical advice (07) ==
LOC: ER 19:09
DX: Z02.89 Encounter for other administrative examinations (principal)

== ENCOUNTER 2020-02-20 18:37 | Emergency (ER) | payer BC ==
[2020-02-20 19:47] LABS: Urine Blood 1+ (NEG); Urine Glucose NEGATIVE (NEG); Urine Protein 2+ (NEG); Urine Specific Gravity >1.030 (1.005-1.030); Urine pH 6.5 (5.0-7.0)
[2020-02-20] MEDS ORDERED: MORPHINE 4 MG/ML SYR ONE (19:58)
[2020-02-20] MEDS ORDERED: NA CHLORIDE 0.9% 1,000 ML ONE (19:58)
[2020-02-20 20:16] LABS: Absolute Lymphocytes (CBC) 1.4 K/uL (0.7-4.9); Basophils % 0.2 % (0-1.3); Hematocrit 39.9 % (39.6-49.0); Lymphocytes % 10.9 % (15.3-44.8); MPV 9.3 fL (7.6-11.3); RBC Red Blood Cell Count 4.57 M/uL (4.33-5.43)
[2020-02-20 20:26] LABS: ALT/SGPT 17 U/L (12-78); AST/SGOT 11 U/L (15-37); Albumin 3.5 g/dL (3.4-5.0); Alkaline Phosphatase 87 U/L (45-117); BUN Blood Urea Nitrogen 8 mg/dL (7-18); Bicarbonate 27 mmol/L (21-32); Bilirubin Direct 0.3 mg/dL (0-0.2); Bilirubin Total 0.9 mg/dL (0.2-1.0); Glucose Level 105 mg/dL (74-106); Potassium 3.3 mmol/L (3.5-5.1); Protein, Total 7.1 g/dL (6.4-8.2); Sodium Level 138 mmol/L (136-145)
--- NOTE | 2020-02-20 20:54 | RAD REPORT ---
EXAM DESCRIPTION: CTAbdomen Pelvis W Contrast - 02/20/2020 8:47 pm CLINICAL HISTORY: Abdominal pain. FLANK PAIN COMPARISON: Stone Protocol dated 01/06/2020 TECHNIQUE: Biphasic CT imaging of the abdomen and pelvis was performed with 100 ml non-ionic IV cont rast. All CT scans are performed using dose optimization technique as appropriate and may include automated exposure control or mA/KV adjustment according to patient size. FINDINGS: The lung bases are clear.Postsurgical changes are present about the stomach. Numerous gall stones are present in the gallbladder. The liver, spleen, pancreas, adrenal glands and right kidney are within normal limits. Punctate calcu aurea is suspected in the left kidney. Left renal pelvis and ureter appears mildly prominent in size. A n obstructing stone is not clearly evident. No bowel obstruction, free air, free fluid or abscess. The appendix is normal. No evidence of signi ficant lymphadenopathy. No suspicious bony findings. IMPRESSION: Mild left hydronephrosis and hydroureter is seen without obstructing calculus evident. R ecent stone passage is a possibility. Cholelithiasis.
--- NOTE | 2020-02-20 22:12 | EDPHYS ---
Physician Documentation [facility] Name: Romaine Matute Age: 34 yrs Sex: Male : 1985 Arrival Date: 02/20/2020 Time: 18:40 Bed 26 Private MD: ED Physician Jose Cox HPI: 02/19 19:53 This 34 yrs old Male presents to ER via Ambulatory with complaints of Kidney mh7 Problem. 19:53 The patient complains of pain in the left flank. The pain does not radiate. Onset: The mh7 symptoms/episode began/occurred 4 day(s) ago. Modifying factors: The symptoms are alleviated by nothing. the symptoms are aggravated by movement. Associated signs and symptoms: Pertinent positives: hematuria, Pertinent negatives: diarrhea, dizziness, dysuria, fever, urinary frequency, headache, nausea, pain radiating to the lower extremities, vomiting. Severity of pain: At its worst the pain was moderate 2 day(s) ago, in the emergency department the pain has improved moderately. The patient has been recently seen by a physician: [facility]. 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 - Social history:: Smoking status: Patient denies any tobacco usage or history of. Patient/guardian denies using alcohol, street drugs, tobacco products. ROS: 19:53 Constitutional: Negative for fever, chills, and weight loss, Eyes: Negative for injury, mh7 pain, redness, and discharge, ENT: Negative for injury, pain, and discharge, Neck: Negative for injury, pain, and swelling, Cardiovascular: Negative for chest pain, palpitations, and edema, Respiratory: Negative for shortness of breath, cough, wheezing, and pleuritic chest pain. 19:53 MS/Extremity: Negative for injury and deformity, Skin: Negative for injury, rash, and discoloration, Neuro: Negative for headache, weakness, numbness, tingling, and seizure, Psych: Negative for depression, anxiety, suicide ideation, homicidal ideation, and hallucinations, Allergy/Immunology: Negative for hives, rash, and allergies, Endocrine: Negative for neck swelling, polydipsia, polyuria, polyphagia, and marked weight changes, Hematologic/Lymphatic: Negative for swollen nodes, abnormal bleeding, and unusual bruising. 19:53 Abdomen/GI: Exam: 19:53 Constitutional: This is a well developed, well nourished patient who is awake, alert, mh7 and in no acute distress. Head/Face: Normocephalic, atraumatic. Neck: Trachea midline, no thyromegaly or masses palpated, and no cervical lymphadenopathy. Supple, full range of motion without nuchal rigidity, or vertebral point tenderness. No Meningismus. Chest/axilla: Normal chest wall appearance and motion. Nontender with no deformity. No lesions are appreciated. Cardiovascular: Regular rate and rhythm with a normal S1 and S2. No gallops, murmurs, or rubs. Normal PMI, no JVD. No pulse deficits. Respiratory: Lungs have equal breath sounds bilaterally, clear to auscultation and percussion. No rales, rhonchi or wheezes noted. No increased work of breathing, no retractions or nasal flaring. Abdomen/GI: Soft, non-tender, with normal bowel sounds. No distension or tympany. No guarding or rebound. No evidence of tenderness throughout. 19:53 Skin: Warm, dry with normal turgor. Normal color with no rashes, no lesions, and no evidence of cellulitis. MS/ Extremity: Pulses equal, no cyanosis. Neurovascular intact. Full, normal range of motion. Neuro: Awake and alert, GCS 15, oriented to person, place, time, and situation. Cranial nerves II-XII grossly intact. Motor strength 5/5 in all extremities. Sensory grossly intact. Cerebellar exam normal. Normal gait. Psych: Awake, alert, with orientation to person, place and time. Behavior, mood, and affect are within normal limits. 19:53 Back: pain, is absent, ROM is normal, normal spinal alignment noted, CVA tenderness, is absent, muscle spasm, is not present. Vital Signs: 18:58 BP 137 / 88; Pulse 80; Resp 18; Temp 98.6; Pulse Ox 99% ; Pain 2/10; ll1 21:17 BP 125 / 57; Pulse 78; Resp 19; Pulse Ox 98% on R/A; ea 22:00 BP 119 / 82; Pulse 70; Resp 18; Pulse Ox 98% on R/A; ea MDM: 19:37 Patient medically screened. [facility] 22:08 Differential diagnosis: nephrolithiasis, pyelonephritis, UTI. Data reviewed: vital [facility] signs, nurses notes, old medical records, lab test result(s), CBC, electrolytes, urinalysis, radiologic studies, CT scan. Data interpreted: Pulse oximetry: on room air is 98 %. Interpretation: normal. Counseling: I had a detailed discussion with the patient and/or guardian regarding: the historical points, exam findings, and any diagnostic results supporting the discharge/admit diagnosis, lab results, radiology results, the need for outpatient follow up, to return to the emergency department if symptoms worsen or persist or if there are any questions or concerns that arise at home. Response to treatment: the patient's symptoms have resolved after treatment, the patient's blood pressure is in an acceptable range, mental status has returned to baseline, the patient no longer shows bradycardia, the patient is not short of breath, the patient is not tachycardic, the patient's pain is gone, the patient's temperature has normalized. 02/19 19:37 Order name: Basic Metabolic Panel; Complete Time: 20:32 7 02/19 19:37 Order name: CBC with Diff; Complete Time: 20:32 [facility] 02/19 19:37 Order name: Hepatic Function; Complete Time: 20:32 [facility] 02/19 19:38 Order name: CT Abd/Pelvis - IV Contrast Only; Complete Time: 21:20 [facility] 02/19 19:41 Order name: Urine Dipstick--Ancillary (enter results); Complete Time: 20:32 [facility] 02/19 19:37 Order name: IV Saline Lock; Complete Time: 20:33 7 02/19 19:37 Order name: Labs collected and sent; Complete Time: 20:33 [facility] 02/19 19:38 Order name: Urine Dipstick-Ancillary (obtain specimen); Complete Time: 19:41 7 Administered Medications: 20:01 Drug: NS 0.9% 1000 ml Route: IV; Rate: 1000 ml; Site: right antecubital; ea 22:00 Follow up: Response: No adverse reaction; IV Status: Completed infusion; IV Intake: ea 1000ml Disposition: 02/20/20 22:10 Discharged to Home. Impression: Unspecified renal colic, Dehydration. - Condition is Stable. - Discharge Instructions: Dehydration, Adult, Kidney Stones, [id number]. - Medication Reconciliation Form, Thank You Letter, Antibiotic Education, Prescription Opioid Use form. - Work release form (02/21/20 12:02). ss - Follow up: Private Physician; When: 1 - 2 days; Reason: Worsening of condition, Recheck today's complaints, Re-evaluation by your physician. Follow up: Tavia Adler MD; When: 1 - 2 days; Reason: Worsening of condition, Recheck today's complaints. - Problem is an ongoing problem. - Symptoms have improved. Signatures: Dispatcher [employer] EDMS Fiorella Roman RN RN ea Lewis, Lynsay, RN RN 1 Jose Cox MD MD 7 Terrie Navarro RN ss Corrections: (The following items were deleted from the chart) 22:19 22:10 02/20/2020 22:10 Discharged to Home. Impression: Unspecified renal colic; ea Dehydration. Condition is Stable. Forms are Medication Reconciliation Form, Thank You Letter, Antibiotic Education, Prescription Opioid Use. Follow up: Private Physician; When: 1 - 2 days; Reason: Worsening of condition, Recheck today's complaints, Re-evaluation by your physician. Follow up: Tavia Adler; When: 1 - 2 days; Reason: Worsening of condition, Recheck today's complaints. Problem is an ongoing problem. Symptoms have improved. mh7
--- NOTE | 2020-02-20 22:12 | ER ---
Nurse's Notes [facility] Name: Romaine Matute Age: 34 yrs Sex: Male : 1985 Arrival Date: 02/20/2020 Time: 18:40 Bed 26 Private MD: Diagnosis: Unspecified renal colic;Dehydration Presentation: 02/19 18:58 Chief complaint: Patient states: Left lower back pain since Wednesday night. Went to [place] [address] this past weekend, CT did not show a stone. Possibly had passed it. States he has been having intermittent right lower back pain since. No dysuria. Coronavirus screen: Proceed with normal triage. Patient denies a cough. Patient denies shortness of breath or difficulty breathing. Patient denies measured and/or subjective temperature greater than 100.4F prior to today's visit. Patient denies travel on a cruise ship or to a country the [facility] currently lists as an affected area. Patient denies contact with known and/or suspected case of COVID-19. Ebola Screen: Patient denies travel to an Ebola-affected area in the 21 days before illness onset. Initial Sepsis Screen: Does the patient meet any 2 criteria? No. Patient's initial sepsis screen is negative. Risk Assessment: Do you want to hurt yourself or someone else? Patient reports no desire to harm self or others. Onset of symptoms was February 15, 2020. 18:58 Acuity: SUNNI 3 ll1 18:58 Method Of Arrival: Ambulatory 1 19:29 Initial Sepsis Screen: Does the patient have a suspected source of infection? No. ea Patient's initial sepsis screen is negative. 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 - Social history:: Smoking status: Patient denies any tobacco usage or history of. Patient/guardian denies using alcohol, street drugs, tobacco products. Screenin:28 Abuse screen: Denies threats or abuse. Nutritional screening: No deficits noted. ea Tuberculosis screening: No symptoms or risk factors identified. Fall Risk None identified. Assessment: 19:27 General: Appears in no apparent distress. Behavior is calm, cooperative, appropriate ea for age. Pain: Complains of pain in left flank Pain does not radiate. Neuro: Level of Consciousness is awake, alert, obeys commands, Oriented to person, place, time, situation. Cardiovascular: Patient's skin is warm and dry. Respiratory: Airway is patent Respiratory effort is even, unlabored, Respiratory pattern is regular, symmetrical. Derm: Skin is pink, warm \T\ dry. 20:30 Reassessment: Patient and/or family updated on plan of care and expected duration. Pain ea level reassessed. Patient is alert, oriented x 3, equal unlabored respirations, skin warm/dry/pink. 21:17 Reassessment: Patient and/or family updated on plan of care and expected duration. Pain ea level reassessed. Patient is alert, oriented x 3, equal unlabored respirations, skin warm/dry/pink. 22:18 Reassessment: Patient and/or family updated on plan of care and expected duration. Pain ea level reassessed. Patient is alert, oriented x 3, equal unlabored respirations, skin warm/dry/pink. Discharge instruction given to patient, verbalized the understanding of instruction. pt left ED ambulatory tolerating well. Vital Signs: 18:58 BP 137 / 88; Pulse 80; Resp 18; Temp 98.6; Pulse Ox 99% ; Pain 2/10; ll1 21:17 BP 125 / 57; Pulse 78; Resp 19; Pulse Ox 98% on R/A; ea 22:00 BP 119 / 82; Pulse 70; Resp 18; Pulse Ox 98% on R/A; ea ED Course: 18:40 Patient arrived in ED. ag5 18:58 Arm band placed on Patient placed in an exam room, on a stretcher. ll1 19:00 Triage completed. ll1 19:06 Jose Cox MD is Attending Physician. 7 19:16 Fiorella Roman, ERNESTINA is Primary Nurse. ea 19:28 Patient has correct armband on for positive identification. Bed in low position. Call ea light in reach. Side rails up X 1. 20:02 Inserted saline lock: 20 gauge in right antecubital area, using aseptic technique. oe Blood collected. 20:47 CT Abd/Pelvis - IV Contrast Only In Process Unspecified. EDMS 22:10 Tavia Adler MD is Referral Physician. 7 22:17 No provider procedures requiring assistance completed. IV discontinued, intact, ea bleeding controlled, No redness/swelling at site. Pressure dressing applied. Administered Medications: 20:01 Drug: NS 0.9% 1000 ml Route: IV; Rate: 1000 ml; Site: right antecubital; ea 22:00 Follow up: Response: No adverse reaction; IV Status: Completed infusion; IV Intake: ea 1000ml Intake: 22:00 IV: 1000ml; Total: 1000ml. ea Outcome: 22:10 Discharge ordered by MD. hidalgo 22:17 Discharged to home ambulatory. ea 22:17 Condition: stable 22:17 Discharge instructions given to patient, Instructed on discharge instructions, follow up and referral plans. Demonstrated understanding of instructions, follow-up care. 22:19 Patient left the ED. ea Signatures: Dispatcher [employer] EDMS Migel Moreno Elena, RN RN Yudith Mora ag5 Liliana Riggs RN RN ll1 Jose Cox, MD QUISPE Mandeep
[2020-02-20 22:46] VITALS: TEMP 98.6
[2020-02-20 22:48] VITALS: O2SAT 98
[2020-02-20 22:49] VITALS: BP 119/82
== END 2020-02-20 22:19 | disposition home or self-care (01) ==
LOC: ER 18:37
DX: N23 Unspecified renal colic (principal); E86.0 Dehydration; Z88.6 Allergy status to analgesic agent; Z98.84 Bariatric surgery status
CPT/HCPCS: 96361; 85025; 80048; 36415; 80076; 81003; 74177; 96360; 99284; Q9967; J7030

== ENCOUNTER → 2023-09-11 | Emergency (ER) | payer BC, SELFPAY ==
[~2023-09-11] MED LIST: FAMOTIDINE 20 MG/2 ML VIAL IV ONE; NA CHLORIDE 0.9% 1,000 ML ONE; PANTOPRAZOLE 40 MG INJ ONE; SUCRALFATE 1 GM TABLET ONE
--- OUTSIDE RECORDS SUMMARY | 2023-09-11 21:14 | XMS REPORT | Continuity of Care Document ---
Author Name Unknown Address [address] [place] [address] [facility] thconnect Address [address] [place] [address] Care Team Providers Care Ingot Header Name Role Phone Koudela_A Attending Clinician Unavailable Zuniga_S Attending Clinician Unavailable Hawkins_M Attending Clinician Unavailable Koudela_A Admitting Clinician Unavailable Zuniga_S Admitting Clinician Unavailable Hawkins_M Admitting Clinician Unavailable Payers Payer Name Policy Type Policy Number Effective Date Expirati on Date Source [employer] - [facility] - CHOICE PLUS (PPO) [id number] 2021 00:00:00 [place] [id number] 2020 00:00:00 Problems Condition Name Condition Details Condition Category Status Onset Date Resolution Date Last Treatment Date Treating Clinician Comments Source COVID-19 Covid-19 Problem Active 08-23 00:00: 00 [facility] Social History Smoking Status Start Date Stop Date Source Never Smoker [facility] Vital Signs Vital Name Observation Time Observation Value Comments S ource Height 2021-08-21 00:00:00 70 [in_i] [facility] BMI (Body Mass Index) 2021-08-21 00:00:00 35.6 kg/m2 [facility] Body Weight 2021-08-21 00:00:00 3968 [oz_av] [facility] Height 2021-05-22 00:00:00 70 [in_i] [facility] BMI (Body Mass Index) 2021-05-22 00:00:00 35.6 kg/m2 [facility] Body Weight 2021-05-22 00:00:00 3968 [oz_av] [facility] Body Weight 2020-11-06 00:00:00 4631 [oz_av] [facility] BP Diastolic 2020-11-06 00:00:00 86 mm[Hg] [facility] Height 2020-11-06 00:00:00 70 [in_i] [facility] BMI (Body Mass Index) 2020-11-06 00:00:00 41.5 kg/m2 [facility] BP Systolic 2020-11-06 00:00:00 126 mm[Hg] [facility] Height 2020-08-01 00:00:00 70 [in_i] [facility] BMI (Body Mass Index) 2020-08-01 00:00:00 42.8 kg/m2 [facility] Body Weight 2020-08-01 00:00:00 4768 [oz_av] [facility] Plan of Care Planned Activity Planned Date Details Comments Source Diagnostic Test Pending 2021-08-21 00:00:00 rapid SARS CoV + SARS CoV 2 Ag, QL IA, respiratory specimen [code = rapid SARS CoV + SARS CoV 2 Ag, QL IA, respiratory specimen] [facility] Encounters Start Date/Time End Date/Time Encounter Type Admission Type Attending [facility] Care Department Encounter ID Source 2022-04-21 00:00:00 2022-04-21 00:00:00 Outpatient Tyler[facility]Jed [facility] [id number] [facility] 2022-03-17 02:44:00 2022-03-17 02:44:00 Outpatient Koudela_A [facility] [id number] [facility] 2022-02-11 04:26:00 2022-02-11 04:26:00 Outpatient Koudela_A [facility] [id number] [facility] 2022-02-10 09:46:00 2022-02-10 09:46:00 [place] [id number] [facility] 2022-02-05 07:50:00 2022-02-05 07:50:00 Outpatient Koudela_A [facility] [id number] [facility] 2021-10-18 03:41:00 2021-10-18 03:41:00 Outpatient Koudela_A [facility] [id number] [facility] 2021-10-14 02:46:00 2021-10-14 02:46:00 Outpatient Koudela_A [facility] [id number] [facility] 2021-09-09 01:15:00 2021-09-09 01:15:00 Outpatient Koudela_A [facility] [id number] [facility] 2021-08-21 00:00:00 2021-08-21 00:00:00 CHERISE Francisco-C: [address] [place] [address] , Ph. Koudela_A [facility] [id number] [facility] 2021-08-20 04:11:00 2021-08-20 04:11:00 Outpatient Koudela_A [facility] [id number] [facility] 2021-06-02 03:24:00 2021-06-02 03:24:00 Outpatient Koudela_A [facility] [id number] [facility] 2021-05-22 00:00:00 2021-05-22 00:00:00 PAULINA VickersC: [address], [place] [address] , Ph. Tyler_Jed [facility] 0930 [facility] 2020-11-07 01:44:00 2020-11-07 01:44:00 Outpatient Zuniga_S [facility] [id number] [facility] 2020-11-06 00:00:00 2020-11-06 00:00:00 CHERISE Francisco-C: [address] [address] , Ph. Zuniga_S [facility] 316 [facility] 2020-08-08 10:22:00 2020-08-08 10:22:00 Outpatient Hawkins_M [facility] [id number] [facility] 2020-08-07 07:32:00 2020-08-07 07:32:00 Outpatient Hawkins_M [facility] [id number] [facility] 2020-08-01 00:00:00 2020-08-01 00:00:00 Adrienne Johnson, C D AREA SUPERVISOR: [address], [place] [address] , Ph. Angelkins_M [facility] [id number] [facility] Results Test Description Test Time Test Comments Results Result [facility] Ag [Presence] in Respiratory specimen by Rapid [id number] 16:34:00* Test Item Value Reference Range Interpretation Comme nts SARS-CoV - 2 (test code = SA RS-CoV - 2) negative [facility]
--- NOTE | 2023-09-11 22:10 | ER ---
Nurse's Notes [facility] Name: Romaine Matute Age: 37 yrs Sex: Male : 1985 Arrival Date: 09/11/2023 Time: 21:11 Bed 6 Private MD: Diagnosis: Esophagitis, unspecified Presentation: 09/11 21:27 Chief complaint: Patient states: Pt c/o diffuse abdominal pain with esophageal burning tl4 after doing a "hot chip challenge" at 1999. Pt denies nausea, vomiting, diarrhea. Coronavirus screen: Vaccine status: Patient reports receiving the 2nd dose of the covid vaccine. At this time, the client does not indicate any symptoms associated with coronavirus-19. Ebola Screen: Patient negative for fever greater than or equal to 101.5 degrees Fahrenheit, and additional compatible Ebola Virus Disease symptoms Patient denies exposure to infectious person. Patient denies travel to an Ebola-affected area in the 21 days before illness onset. No symptoms or risks identified at this time. Initial Sepsis Screen: Does the patient meet any 2 criteria? No. Patient's initial sepsis screen is negative. Does the patient have a suspected source of infection? No. Patient's initial sepsis screen is negative. Risk Assessment: Do you want to hurt yourself or someone else? Patient reports no desire to harm self or others. Onset of symptoms was September 11, 2023 at 20:00. 21:27 Method Of Arrival: Ambulatory tl4 21:27 Acuity: SUNNI 3 tl4 Triage Assessment: 21:31 General: Appears uncomfortable, Behavior is calm, cooperative. Pain: Complains of pain tl4 in abdomen Quality of pain is described as burning. EENT: No deficits noted. No signs and/or symptoms were reported regarding the EENT system. Neuro: No deficits noted. Cardiovascular: No deficits noted. Denies chest pain, lightheadedness, palpitations. Respiratory: No deficits noted. Denies shortness of breath. GI: Reports lower abdominal pain, upper abdominal pain. : No deficits noted. No signs and/or symptoms were reported regarding the genitourinary system. 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 - Social history:: Smoking status: Reported history of juuling and/or vaping. Screenin:31 [facility] ED Fall Risk Assessment (Adult) History of falling in the last 3 months, tm6 including since admission No falls in past 3 months (0 pts). Abuse screen: Denies threats or abuse. Denies injuries from another. Nutritional screening: No deficits noted. Tuberculosis screening: No symptoms or risk factors identified. Assessment: 21:30 General: Appears in no apparent distress. Behavior is calm, cooperative. Pain: tm6 Complains of pain in abdomen Pain currently is 3 out of 10 on a pain scale. Quality of pain is described as irritated. Neuro: Level of Consciousness is awake, alert, obeys commands, Oriented to person, place, time, situation. Cardiovascular: Capillary refill < 3 seconds Patient's skin is warm and dry. Respiratory: Airway is patent Respiratory effort is even, unlabored, Respiratory pattern is regular, symmetrical. GI: Reports lower abdominal pain, upper abdominal pain, nausea, irritation. : No signs and/or symptoms were reported regarding the genitourinary system. EENT: No signs and/or symptoms were reported regarding the EENT system. EENT: Parent/caregiver reports the patient having. Derm: No signs and/or symptoms reported regarding the dermatologic system. Musculoskeletal: No signs and/or symptoms reported regarding the musculoskeletal system. Vital Signs: 21:27 BP 138 / 82; Pulse 50; Resp 16; Temp 98.6(O); Pulse Ox 100% ; Weight 120.1 kg; Height 5 tl4 ft. 10 in. ; Pain 5/10; 21:30 BP 138 / 82; Pulse 51; Pulse Ox 100% on R/A; Pain 3/10; tm6 22:17 BP 103 / 61; Pulse 54; Pulse Ox 100% on R/A; tm6 21:27 Body Mass Index 37.99 (120.10 kg, 177.8 cm) tl4 21:27 Pain Scale: Adult tl4 21:30 Pain Scale: Adult tm6 ED Course: 21:14 Patient arrived in ED. jj6 21:18 Familia Simmons DO is Attending Physician. ms3 21:18 Virginie Menchaca FNP-C is PHCP. snw 21:20 Virginie Menchaca FNP-C is PHCP. snw 21:29 Triage completed. tl4 21:30 Inserted saline lock: 22 gauge in right antecubital area, using aseptic technique. tm6 21:31 Patient has correct armband on for positive identification. Bed in low position. Call tm6 light in reach. Side rails up X 1. Provided Education on: plan of care. Client placed on continuous cardiac and pulse oximetry monitoring. NIBP monitoring applied. Door closed. Noise minimized. 21:31 No provider procedures requiring assistance completed. tm6 21:32 Arm band placed on Patient placed in an exam room, on a stretcher. tl4 22:18 IV discontinued, intact, bleeding controlled, No redness/swelling at site. Pressure tm6 dressing applied. Administered Medications: 21:27 Drug: Sucralfate PO 1 grams PO once Route: PO; tm6 22:19 Follow up: Response: No adverse reaction tm6 21:39 Drug: NS 0.9% IV 1000 ml IV at 1 bolus Per protocol; 1000 mL bolus Route: IV; Rate: 1 tm6 bolus; Site: right antecubital; 22:18 Follow up: Response: No adverse reaction; IV Intake: 1000ml tm6 21:39 Drug: Famotidine IVP 20 mg IVP once; dilute with 10 mL 0.9% NaCl; give over 2 minutes tm6 Route: IVP; Site: right antecubital; 22:19 Follow up: Response: No adverse reaction tm6 21:39 Drug: Pantoprazole IVP 40 mg IVP once Route: IVP; Site: right antecubital; tm6 22:19 Follow up: Response: No adverse reaction tm6 Medication: 21:31 VIS not applicable for this client. tm6 Intake: 22:18 IV: 1000ml; Total: 1000ml. tm6 Outcome: 22:10 Discharge ordered by . snw 22:27 Discharged to home ambulatory, with family, tm6 22:27 Condition: stable 22:27 Discharge instructions given to patient, Instructed on discharge instructions, follow up and referral plans. medication usage, Demonstrated understanding of instructions, follow-up care, medications, Prescriptions given X 3, 22:27 Patient left the ED. tm6 Signatures: Virginie Menchaca FNP-C CLINICAL NURSE SPECIALIST-Csnw Familia Simmons DO DO ms3 Steph [id number] Ernesto Adams RN RN tm6 James, Raad tl4 Corrections: (The following items were deleted from the chart) 21:33 21:27 BP 138 / 82; Pulse 50bpm; Resp 16bpm; Pulse Ox 100%; Temp 98.6F Oral; 120.1 kg; tl4 Height 5 ft. 10 in.; BMI: 37.9; Pain 8/10, Adult; tl4
--- NOTE | 2023-09-11 22:10 | EDPHYS ---
Physician Documentation [facility] Name: Romaine Matute Age: 37 yrs Sex: Male : 1985 Arrival Date: 09/11/2023 Time: 21:11 Bed 6 Private MD: ED Physician Familia Simmons HPI: 09/11 21:21 This 37 yrs old Male presents to ER via Unassigned with complaints of Pt did "Hot Chip snw Challenge" and is having pain in esophagus and abdomen.. 21:21 The patient presents with abdominal pain in the epigastric area, in the upper abdomen. snw Onset: The symptoms/episode began/occurred suddenly. The symptoms do not radiate. Associated signs and symptoms: Pertinent positives: burning. The symptoms are described as burning. Severity of pain: At its worst the pain was moderate severe. The patient has not experienced similar symptoms in the past. It is unknown whether or not the patient has recently seen a physician. "hot chip challenge". 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 - Social history:: Smoking status: Reported history of juuling and/or vaping. ROS: 21:21 Constitutional: Negative for fever, chills, and weight loss, Eyes: Negative for injury, snw pain, redness, and discharge, ENT: Negative for injury, pain, and discharge, Neck: Negative for injury, pain, and swelling, Cardiovascular: Negative for chest pain, palpitations, and edema, Respiratory: Negative for shortness of breath, cough, wheezing, and pleuritic chest pain, Back: Negative for injury and pain, : Negative for injury, bleeding, discharge, and swelling, MS/Extremity: Negative for injury and deformity, Skin: Negative for injury, rash, and discoloration, Neuro: Negative for headache, weakness, numbness, tingling, and seizure, Psych: Negative for depression, anxiety, suicide ideation, homicidal ideation, and hallucinations, 21:21 Abdomen/GI: Positive for abdominal pain, nausea, of the epigastric area, Exam: 21:20 Constitutional: This is a well developed, well nourished patient who is awake, alert, snw and in no acute distress. Head/Face: Normocephalic, atraumatic. Eyes: Pupils equal round and reactive to light, extra-ocular motions intact. Lids and lashes normal. Conjunctiva and sclera are non-icteric and not injected. Cornea within normal limits. Periorbital areas with no swelling, redness, or edema. ENT: Nares patent. No nasal discharge, no septal abnormalities noted. Tympanic membranes are normal and external auditory canals are clear. Oropharynx with no redness, swelling, or masses, exudates, or evidence of obstruction, uvula midline. Mucous membranes moist. Neck: Trachea midline, no thyromegaly or masses palpated, and no cervical lymphadenopathy. Supple, full range of motion without nuchal rigidity, or vertebral point tenderness. No Meningismus. Chest/axilla: Normal chest wall appearance and motion. Nontender with no deformity. No lesions are appreciated. Cardiovascular: Regular rate and rhythm with a normal S1 and S2. No gallops, murmurs, or rubs. Normal PMI, no JVD. No pulse deficits. Respiratory: Lungs have equal breath sounds bilaterally, clear to auscultation and percussion. No rales, rhonchi or wheezes noted. No increased work of breathing, no retractions or nasal flaring. Back: No spinal tenderness. No costovertebral tenderness. Full range of motion. Skin: Warm, dry with normal turgor. Normal color with no rashes, no lesions, and no evidence of cellulitis. MS/ Extremity: Pulses equal, no cyanosis. Neurovascular intact. Full, normal range of motion. Neuro: Awake and alert, GCS 15, oriented to person, place, time, and situation. Cranial nerves II-XII grossly intact. Motor strength 5/5 in all extremities. Sensory grossly intact. Cerebellar exam normal. Normal gait. Psych: Awake, alert, with orientation to person, place and time. Behavior, mood, and affect are within normal limits. 21:20 Abdomen/GI: Inspection: abdomen appears normal, Bowel sounds: normal, Palpation: moderate abdominal tenderness, in the epigastric area, Vital Signs: 21:27 BP 138 / 82; Pulse 50; Resp 16; Temp 98.6(O); Pulse Ox 100% ; Weight 120.1 kg; Height 5 tl4 ft. 10 in. ; Pain 5/10; 21:30 BP 138 / 82; Pulse 51; Pulse Ox 100% on R/A; Pain 3/10; tm6 22:17 BP 103 / 61; Pulse 54; Pulse Ox 100% on R/A; tm6 21:27 Body Mass Index 37.99 (120.10 kg, 177.8 cm) tl4 21:27 Pain Scale: Adult tl4 21:30 Pain Scale: Adult tm6 MDM: 21:18 Patient medically screened. snw 22:11 Differential diagnosis: gastritis, gastroesophageal reflux disease, non-specific abd snw pain, pancreatitis, Peritonitis. Data reviewed: vital signs, nurses notes. I considered the following discharge prescriptions or medication management in the emergency department Medications were administered in the Emergency Department. See MAR. Counseling: I had a detailed discussion with the patient and/or guardian regarding the historical points, exam findings, and any diagnostic results supporting the discharge/admit diagnosis, the need for outpatient follow up, for definitive care, to return to the emergency department if symptoms worsen or persist or if there are any questions or concerns that arise at home. Response to treatment: the patient's symptoms have markedly improved after treatment. Special discussion: Based on the patient's Hx, exam, and Dx evaluation, there is no indication for emergent surgery or inpatient Tx. It is understood by the patient/guardian that if the Sx's persist or worsen they need to return immediately for re-evaluation. Based on the history and exam findings, there is no indication for further emergent testing or inpatient evaluation. I discussed with the patient/guardian the need to see the water resource agent for further evaluation of the symptoms. I discussed with the patient/guardian the need to see the primary care provider for further evaluation of the symptoms. Administered Medications: 21:27 Drug: Sucralfate PO 1 grams PO once Route: PO; tm6 22:19 Follow up: Response: No adverse reaction tm6 21:39 Drug: NS 0.9% IV 1000 ml IV at 1 bolus Per protocol; 1000 mL bolus Route: IV; Rate: 1 tm6 bolus; Site: right antecubital; 22:18 Follow up: Response: No adverse reaction; IV Intake: 1000ml tm6 21:39 Drug: Famotidine IVP 20 mg IVP once; dilute with 10 mL 0.9% NaCl; give over 2 minutes tm6 Route: IVP; Site: right antecubital; 22:19 Follow up: Response: No adverse reaction tm6 21:39 Drug: Pantoprazole IVP 40 mg IVP once Route: IVP; Site: right antecubital; tm6 22:19 Follow up: Response: No adverse reaction tm6 Disposition: 21:35 I was immediately available on-site in the Emergency Department for consultation in the ms3 care of the patient. Disposition Summary: 09/11/23 22:10 Discharge Ordered Notes: Location: Home snw Condition: Stable snw Diagnosis - Esophagitis, unspecified snw Followup: snw - With: Emergency Department - When: As needed - Reason: Worsening of condition Followup: snw - With: Private Physician - When: 2 - 3 days - Reason: Recheck today's complaints, Continuance of care, Re-evaluation by your physician Discharge Instructions: - Discharge Summary Sheet snw - Esophagitis snw - [place] Diet snw Forms: - Medication Reconciliation Form snw - Thank You Letter snw - Antibiotic Education snw - Prescription Opioid Use snw - Patient Portal Instructions snw - Leadership Thank You Letter snw Prescriptions: - Zofran 4 mg Oral Tablet - take 1 tablet ORAL route every 12 hours As needed; 20 tablet; Refills: 0, snw Product Selection Permitted - Carafate 1 gram Oral Tablet - take 2 tablets ORAL route every 12 hours take on an empty stomach, beginning on snw waking and last dose at bedtime; 100 tablet; Refills: 0, Product Selection Permitted Signatures: Virginie Menchaca FNP-C FNP-Familia Garcia DO DO ms3 Ernesto Adams RN RN tm6 Raad Ramirez tl4
[2023-09-12 01:10] VITALS: TEMP 98.6; O2SAT 100
[2023-09-12 01:26] VITALS: BP 103/61
== END ==
LOC: ER 21:11
DX: K20.90 Esophagitis, unspecified without bleeding (principal); R10.30 Lower abdominal pain, unspecified; R10.10 Upper abdominal pain, unspecified
CPT/HCPCS: 96375; 96374; 99284; C9113; J7030